=== PATIENT | female | born 1950 | race Caucasian/White ===

== ENCOUNTER 2025-03-14 12:24 | Inpatient (IN) | payer MEDICARE, SELFPAY ==
[2025-03-14] VITALS (18 sets, daily range): BP systolic 99–190; BP diastolic 40–79; PULSE 55–81; TEMP 36.6–36.8; O2SAT 93–98; BMI 80.7; BMI 36.8
--- NOTE | 2025-03-14 14:45 | ECG_ITS ---
[facility] Test Date: 2025-03-14 Pat Name: SAVITA VALLE Department: Room: - Gender: Female Labor Delivery Rn: : 1950 Requested By: [id number] Order Number: [id number] Balta MD: ENRIKE PIRES M.D. Measurements Intervals [place] Rate: 66 P: 76 CA: 202 QRS: 66 QRSD: 78 T: 64 QT: 374 QTc: 387 Interpretive Statements 1100 Sinus rhythm 9110 normal ECG No previous ECG available for comparison Electronically Signed On 03-14-2025 18:07:32 EDT by ENRIKE PIRES M.D.
[2025-03-14 15:28] LABS: Hematocrit 35.1 % (36.0-48.0); Hemoglobin 10.9 g/dL (12.0-16.0); Immature Granulocytes Abs Auto 0.07 10^3/uL (0.00-0.03); Immature Granulocytes Pct Auto 0.5 % (0.0-0.5); Lymphocytes Absolute Auto 1.4 10^3/uL (1.2-3.8); Mean Corpuscular HGB Conc 31.1 g/dL (29.9-35.2); Mean Corpuscular Hemoglobin 28.8 pg (26.7-34.0); Mean Corpuscular Volume 92.6 fL (81.0-99.0); Platelet Count 275 10^3/uL (150-450); Red Blood Count 3.79 10^6/uL (4.20-5.40); White Blood Count 13.9 10^3/uL (4.0-11.0)
[2025-03-14 15:48] LABS: Alanine Aminotransferase 19 U/L (14-59); Albumin Globulin Ratio 0.9; Albumin Level 3.8 g/dL (3.4-5.0); Alkaline Phosphatase 105 U/L (46-116); Anion Gap 16.7; Aspartate Amino Transferase 13 U/L (15-37); Blood Urea Nitrogen 44.0 mg/dL (7.0-18.0); Calcium 9.1 mg/dL (8.5-10.1); Carbon Dioxide 17.6 mmol/L (21.0-32.0); Chloride 108 mmol/L (98-107); Estimated GFR (African America 36 (>=60 mL/min/1.73m^2); Estimated GFR (Non-African Ame 30 (>=60 mL/min/1.73m^2); Globulin 4.2 g/dL; Glucose 100 mg/dL (74-106); Sodium 136 mmol/L (136-145); Total Protein 8.0 g/dL (6.4-8.2)
[2025-03-14 15:52] LABS: Potassium 6.3 mmol/L (3.5-5.1)
--- NOTE | 2025-03-14 16:25 | ED_ITS ---
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 She has a history of chronic kidney disease and recently started spironolactone three months ago per her behavior analyst. She reports no symptoms: no chest pain, abdominal pain, nausea, vomiting, diarrhea, weakness, numbness, or tingling. She is making urine normally and denies any recent illness, cough, congestion, or skin changes. She has not taken any supplemental potassium. She has not had labs checked for over three months prior to nephrology visit. Related Data Home Medications ?Medication ?Instructions ?Recorded ?Confirmed albuterol sulfate 2.5 mg/3 mL 2.5 mg inhalation .4x da megan 03/14/25 03/14/25 (0.083 %) solution for nebulization albuterol sulfate 90 mcg/actuation 2 puff inhalation Q 6H PRN 03/14/25 03/14/25 aerosol inhaler shortness of breath or wheez ing allopurinol 300 mg tablet 300 mg PO DAILY 03/14/25 amlodipine 10 mg tablet 10 mg PO DAILY 03/14/2502/21 atenolol 25 mg tablet 25 mg PO ACHS 03/14/2503/14 calcitriol 0.25 mcg capsule 0.25 mcg PO .COMPLEX 03/1403/14/25 ergocalciferol (vitamin D2) 1,250 1,250 mcg PO DAILY 0 03/14/25 03/14/25 mcg (50,000 unit) capsule ferrous sulfate 325 mg (65 mg 325 mg PO .COMPLEX 03/1403/14/25 iron) tablet (FeroSul) fluticasone fur. 200 mcg-umeclid 1 inh inhalation AC 0 03/14/25 03/14/25 62.5 mcg-vilant 25 mcg inhalat.powder (Trelegy Ellipta) fluticasone propionate 50 2 spray intranasal AC 03/14/25 mcg/actuation nasal spray,suspension furosemide 40 mg tablet mg 03/14/25 Held on 03/14/25. Instructions: Order Change hydralazine 25 mg tablet 25 mg PO BID 03/14/25 levothyroxine 75 mcg tablet 75 mcg PO DAILY 03/14/25 0 03/14/25 lisinopril 20 mg tablet 20 mg PO BID 03/14/25 spironolactone 25 mg tablet 25 mg PO DAILY 03/14/25 Allergies Allergy/AdvReac Type Severity Reaction Status Date / Time Penicillins Allergy Severe Swelling Verified 03/14/25 12:58 of Lip/Tongue/Throat nickel Allergy Mild Redness of Verified 03/14/25 12:58 Skin sulfamethoxazole (From Allergy Mild Unknown Verified 03/14/25 12:58 Bactrim) trimethoprim (From Bactrim) Allergy Mild Unknown Verified 03/14/25 12:58 [facility] Medical History (Updated 03/14/25 @ 20:31 by SHEELA BARKSDALE) COPD (chronic obstructive pulmonary disease) ?J44.9 - Chronic obstructive pulmonary disease, unspecified (ICD-10) Hypertension ?I10 - Essential (primary) hypertension (ICD-10) Stage 3 chronic kidney disease ?N18.30 - Chronic kidney disease, stage 3 unspecified (ICD-10) Social History Little interest or pleasure in doing things: not at all Feeling down, depressed, or hopeless: not at all Exam Narrative Exam Narrative: * General: Alert, oriented, resting comfortably in bed, no acute distress. * Cardiac: Regular rate and rhythm, no murmurs. * Respiratory: Lungs clear to auscultation, no distress. * Abdomen: Soft, non-tender, non-distended. * Extremities / Neuro: No focal deficits, no edema, no numbness or tingling. * Skin: No rashes or lesions noted. Constitutional Vital Signs, click to edit/add: Last Vital Signs Temp 98.3 F 03/14/25 13:09 Pulse 59 L 03/14/25 20:30 Resp 21 H 03/14/25 20:30 BP 131/55 03/14/25 20:30 Pulse Ox 97 03/14/25 20:30 O2 Del Method Room Air 03/14/25 17:00 Course Vital Signs Vital signs: Vital Signs Temperature 98.3 F 03/14/25 13:09 Pulse Rate 67 03/14/25 13:09 Respiratory Rate 20 03/14/25 13:09 Blood Pressure 190/75 H 03/14/25 13:09 Pulse Oximetry 95 03/14/25 13:09 Oxygen Delivery Method Room Air 03/14/25 13:09 Temperature 98.3 F 03/14/25 13:09 Pulse Rate 59 L 03/14/25 20:30 Respiratory Rate 21 H 03/14/25 20:30 Blood Pressure 131/55 03/14/25 20:30 Pulse Oximetry 97 03/14/25 20:30 Oxygen Delivery Method Room Air 03/14/25 17:00 MDM - Recheck/Abnormal Lab/Rx MDM Narrative Medical decision making narrative: Diagnostics / Labs: * Initial Labs: K 6.3, Bicarb 17, pH 7.2, BUN 44, Creatinine 1.68, WBC 13. Troponin 6 (likely reference unit, negative). * EKG: Normal sinus rhythm, HR 66, NV 202 ms, QRS 78 ms, QT/QTc 370/[address] changes, T-wave peaking, or inversion. * Repeat Labs after treatment: K? 5.2, Cl? 111, Bicarb 19.2, BUN 43, Creatinine 1.7, Glucose 65 mg/dL. ED Course / Treatment: * Patient remained asymptomatic throughout ED stay. * Treated with: * IV insulin 10 units + D50 * Albuterol nebulizer * 1 L normal saline hydration * Lokal * Blood glucose monitored; second glucose 65 mg/dL ? patient given oral intake. * Potassium improved from 6.3 ? 5.2 after interventions. MDM / Assessment: Patient with chronic kidney disease and recent initiation of spironolactone presented with hyperkalemia (K? 6.3) without symptoms. EKG was reassuring with no acute changes. Labs revealed mild metabolic acidosis (bicarb 17, pH 7.2) and slight leukocytosis (WBC 13). Hyperkalemia was managed with standard temporizing measures (IV insulin, D50, albuterol, hydration), resulting in potassium improvement to 5.2. Differential includes: * Medication-induced hyperkalemia (likely due to spironolactone) * CKD-related impaired potassium excretion * Less likely: acute hemolysis or tissue breakdown (no clinical evidence) Given need for ongoing monitoring of potassium and blood glucose after insulin therapy, patient is appropriate for inpatient admission. Disposition: * Plan: Admit to inpatient unit for continued monitoring of electrolytes, renal function, and glucose. Adjust medications as needed in consultation with nephrology. Patient remained asymptomatic and is hemodynamically stable for admission. * * * She sees Dr. Hernández, nephrology in [place] Medical Records Attestation: I reviewed the patient's medical records. Lab Data Attestation: I reviewed the patient's lab results. Labs: Lab Results 03/14/25 03/14/25 03/14/25 Range/Units 15:13 16:26 18:49 WBC 13.9 H (4.0-11.0) 10^3/uL RBC 3.79 L (4.20-5.40) 10^6/uL Hgb 10.9 L (12.0-16.0) g/dL Hct 35.1 L (36.0-48.0) % MCV 92.6 (81.0-99.0) fL MCH 28.8 (26.7-34.0) pg MCHC 31.1 (29.9-35.2) g/dL RDW 16.7 H (11.0-15.0) % Plt Count 275 (150-450) 10^3/uL MPV 11.6 (9.5-13.5) fL Neut % (Auto) 82.7 H (43.0-75.0) % Lymph % (Auto) 10.2 L (20.5-60.0) % [place] % (Auto) 4.9 (1.7-12.0) % Eos % (Auto) 1.6 (0.9-7.0) % Baso % (Auto) 0.1 L (0.2-2.0) % Neut # (Auto) 11.5 H (1.4-6.5) 10^3/uL Lymph # (Auto) 1.4 (1.2-3.8) 10^3/uL [place] # (Auto) 0.7 (0.3-0.8) 10^3/uL Eos # (Auto) 0.2 (0.0-0.7) 10^3/uL Baso # (Auto) 0.0 (0.0-0.1) 10^3/uL Abs Immat Gran (auto) 0.07 H (0.00-0.03) 10^3/uL Imm/Tot Granulo (auto) 0.5 (0.0-0.5) % VBG pH 7.293 L (7.330-7.430) VBG pCO2 32.9 L (40.0-52.0) mmHg Sodium 136 140 (136-145) mmol/L Potassium 6.3 H* 5.2 H (3.5-5.1) mmol/L Chloride 108 H 111 H (98-107) mmol/L Carbon Dioxide 17.6 L 19.2 L (21.0-32.0) mmol/L Anion Gap 16.7 15.0 BUN 44.0 H 43.0 H (7.0-18.0) mg/dL Creatinine 1.68 H 1.70 H (0.55-1.02) mg/dL Est GFR ( Amer) 36 L 35 L (>=60 mL/min/1.73m^2) Est GFR (Non-Af Amer) 30 L 29 L (>=60 mL/min/1.73m^2) BUN/Creatinine Ratio 26.2 25.3 Glucose 100 65 L (74-106) mg/dL Calcium 9.1 8.5 (8.5-10.1) mg/dL Magnesium 2.0 (1.8-2.4) mg/dL Total Bilirubin 0.3 (0.2-1.0) mg/dL AST 13 L (15-37) U/L ALT 19 (14-59) U/L Alkaline Phosphatase 105 (46-116) U/L Troponin I High Sens 6.0 (4.0-51.3) pg/mL Total Protein 8.0 (6.4-8.2) g/dL Albumin 3.8 (3.4-5.0) g/dL Globulin 4.2 g/dL Albumin/Globulin Ratio 0.9 ECG Data Attestation: ?I have reviewed the pertinent ECG results. Discharge Plan Discharge Chief Complaint: Recheck/Abnormal Lab/Rx Clinical Impression: Acute hyperkalemia, Chronic renal failure Patient Disposition: Admitted as Observation Time of Disposition Decision: 20:34 Condition: Good
[2025-03-14 16:39] LABS: PCO2 VBG 32.9 mmHg (40.0-52.0); pH VBG 7.293 (7.330-7.430)
[2025-03-14] MEDS: 0.9 % SODIUM CHLORIDE 1,000 ML 1000 ML IV (16:46)
[2025-03-14] MEDS: INSULIN REGULAR, HUMAN (100 UNIT/ML) 10 ML MDV 10 UNIT IV (16:47)
[2025-03-14] MEDS: DEXTROSE 50 %-WATER 25 GM/50 ML SYRINGE IV (16:47)
[2025-03-14] MEDS: SODIUM ZIRCONIUM CYCLOSILICATE 10 GM POWD.PACK PO (16:48)
[2025-03-14] MEDS: ALBUTEROL SULFATE 2.5 MG/3 ML VIAL NEB IH (16:58)
[2025-03-14 17:15] LABS: Magnesium 2.0 mg/dL (1.8-2.4)
[2025-03-14 19:09] LABS: Anion Gap 15.0; Blood Urea Nitrogen 43.0 mg/dL (7.0-18.0); Calcium 8.5 mg/dL (8.5-10.1); Carbon Dioxide 19.2 mmol/L (21.0-32.0); Chloride 111 mmol/L (98-107); Estimated GFR (African America 35 (>=60 mL/min/1.73m^2); Estimated GFR (Non-African Ame 29 (>=60 mL/min/1.73m^2); Glucose 65 mg/dL (74-106); Potassium 5.2 mmol/L (3.5-5.1); Sodium 140 mmol/L (136-145)
[2025-03-14] MEDS: SODIUM CHLORIDE 0.45 % 1,000 ML 80 ML IV (22:45)
[2025-03-14] MEDS: ENOXAPARIN SODIUM 30 MG/0.3 ML SYRINGE SUBQ (22:45)
[2025-03-15] VITALS (19 sets, daily range): BP systolic 132–153; BP diastolic 67–81; PULSE 61–80; TEMP 36.5–36.7; O2SAT 93–98
[2025-03-15 05:12] LABS: Hematocrit 28.9 % (36.0-48.0); Hemoglobin 9.1 g/dL (12.0-16.0); Immature Granulocytes Abs Auto 0.04 10^3/uL (0.00-0.03); Immature Granulocytes Pct Auto 0.3 % (0.0-0.5); Lymphocytes Absolute Auto 1.8 10^3/uL (1.2-3.8); Mean Corpuscular HGB Conc 31.5 g/dL (29.9-35.2); Mean Corpuscular Hemoglobin 29.4 pg (26.7-34.0); Mean Corpuscular Volume 93.2 fL (81.0-99.0); Platelet Count 237 10^3/uL (150-450); Red Blood Count 3.10 10^6/uL (4.20-5.40); White Blood Count 12.2 10^3/uL (4.0-11.0)
[2025-03-15 05:32] LABS: Alanine Aminotransferase 15 U/L (14-59); Albumin Globulin Ratio 0.9; Albumin Level 3.1 g/dL (3.4-5.0); Alkaline Phosphatase 85 U/L (46-116); Anion Gap 17.1; Aspartate Amino Transferase 10 U/L (15-37); Blood Urea Nitrogen 42.0 mg/dL (7.0-18.0); Calcium 8.1 mg/dL (8.5-10.1); Carbon Dioxide 17.2 mmol/L (21.0-32.0); Chloride 111 mmol/L (98-107); Estimated GFR (African America 41 (>=60 mL/min/1.73m^2); Estimated GFR (Non-African Ame 34 (>=60 mL/min/1.73m^2); Globulin 3.3 g/dL; Glucose 71 mg/dL (74-106); Potassium 5.3 mmol/L (3.5-5.1); Sodium 140 mmol/L (136-145); Total Protein 6.4 g/dL (6.4-8.2)
[2025-03-15] MEDS: LEVOTHYROXINE SODIUM 75 MCG TABLET PO (05:48)
[2025-03-15] MEDS: HYDRALAZINE HCL 25 MG TABLET PO ×2 (09:26→21:23)
[2025-03-15] MEDS: SODIUM BICARBONATE 325 MG TABLET 1300 MG PO ×3 (09:27→21:23)
[2025-03-15] MEDS: ATENOLOL 25 MG TABLET PO ×2 (09:27→21:23)
--- NOTE | 2025-03-15 09:41 | CM.NOTE ---
Dr. Woodard in for daily rounds. Dr. Woodard to review records from sales account specialist. Potential DC tomorrow.
[2025-03-15] MEDS: BUDESONIDE 0.5 MG/2 ML AMPULE NEB IH ×2 (10:04→20:38)
[2025-03-15] MEDS: ALBUTEROL SULFATE 2.5 MG/3 ML VIAL NEB IH ×3 (10:05→20:38)
--- NOTE | 2025-03-15 11:00 | CM.NOTE ---
Discussed with Dr. Woodard regarding pt status, pt will change to inpatient status.
--- NOTE | 2025-03-15 11:10 | CM.NOTE ---
Called [facility] office for previous labs, labs received and given to Dr. Woodard.
--- NOTE | 2025-03-15 12:14 | PM.HP ---
HPI H&P: HPI History of Present Illness Chief complaint: Acute hyperkalemia chronic renal failure Narrative: Mrs. May is a 75-year-old female with a history of CKD stage III, hypertension. According to the patient she had been on lisinopril 20 mg twice a day. Her gui developer in the [place] added the spironolactone. She had an outpatient blood test which showed potassium above 6.5 and she was instructed to come to the emergency room. Potassium here is 6.3. Patient was given hyperkalemia cocktail and admitted for observation. No chest pain or palpitation. No abdominal pain, nausea or vomiting. No fever or chills Opioid HPI Opioid Management Most Recent Pain and Opioid Data: Last Pain Assessment 03/14/25, 22:00 Last ORT Total Score 0 03/14/25, 21:21 Last ORT Risk Category Low Risk 03/14/25, 21:21 Review of Systems ROS Status of ROS 10 or more systems reviewed and unremarkable except as noted in history and below PFSH PFS Medical History (Updated 03/15/25 @ 12:15 by Yisel Woodard MD) COPD (chronic obstructive pulmonary disease) ?J44.9 - Chronic obstructive pulmonary disease, unspecified (ICD-10) Stage 3 chronic kidney disease ?N18.30 - Chronic kidney disease, stage 3 unspecified (ICD-10) Surgical History (Updated 03/15/25 @ 00:02 by Radha Elizondo RN) History of phacoemulsification of cataract of both eyes with intraocular lens implantation ?Z98.41 - Cataract extraction status, right eye (ICD-10) ?Z98.42 - Cataract extraction status, left eye (ICD-10) ?Z96.1 - Presence of intraocular lens (ICD-10) H/O partial thyroidectomy ?E89.0 - Postprocedural hypothyroidism (ICD-10) Family History (Updated 03/14/25 @ 21:27 by Radha Elizondo, GALLO) Father Family history of CHF (congestive heart failure) Family history of COPD (chronic obstructive pulmonary disease) Family history of hypertension Family history of myocardial infarction Grandfather Family history of cancer Mother Family history of diabetes mellitus Family history of hypertension Family history of stroke Brother Family history of diabetes mellitus Social History (Updated 03/14/25 @ 21:28 by Radha Elizondo, GALLO) Within the past year, how often did you have a drink containing alcohol: never Score interpretation: A score less than 3 is consistent with normal alcohol consumption. Smoking status: Former smoker Non-prescribed substance use: denies use Highest level of school completed/degree received: high school graduate Are you now , , , , never or living with a partner: living with partner Little interest or pleasure in doing things: not at all Feeling down, depressed, or hopeless: not at all Do you think of yourself as: straight/heterosexual Gender Identity: female Meds Home Medications and Allergies Home Medications ?Medication ?Instructions ?Recorded ?Confirmed ?Type albuterol sulfate 2.5 mg/3 mL 2.5 mg inhalation .4x daily 03/14/25 03/14/25 History (0.083 %) solution for nebulization albuterol sulfate 90 mcg/actuation 2 puff inhalation Q6H PRN 03/14/25 03/14/25 History aerosol inhaler shortness of breath or wheezing allopurinol 300 mg tablet 300 mg PO DAILY 03/14/25 03/14/25 History amlodipine 10 mg tablet 10 mg PO DAILY 03/14/25 History atenolol 25 mg tablet 25 mg PO BID 03/14/25 03/15/25 History calcitriol 0.25 mcg capsule 0.25 mcg PO .COMPLEX 03/14/25 03/14/25 History ergocalciferol (vitamin D2) 1,250 1,250 mcg PO QWEEK 03/14/25 03/15/25 History mcg (50,000 unit) capsule ferrous sulfate 325 mg (65 mg 325 mg PO .COMPLEX 03/14/25 03/14/25 History iron) tablet (FeroSul) fluticasone fur. 200 mcg-umeclid 1 inh inhalation .AM 03/14/25 03/15/25 History 62.5 mcg-vilant 25 mcg inhalat.powder (Trelegy Ellipta) fluticasone propionate 50 2 spray intranasal AC 03/14/25 03/14/25 History mcg/actuation nasal spray,suspension hydralazine 25 mg tablet 25 mg PO BID 03/14/25 03/14/25 History levothyroxine 75 mcg tablet 75 mcg PO DAILY 03/14/25 03/14/25 History lisinopril 20 mg tablet 20 mg PO BID 03/14/25 03/14/25 History spironolactone 25 mg tablet 25 mg PO DAILY 03/14/25 03/14/25 History Allergies Allergy/AdvReac Type Severity Reaction Status Date / Time Penicillins Allergy Severe Swelling Verified 03/14/25 12:58 of Lip/Tongue/Throat nickel Allergy Mild Redness of Verified 03/14/25 12:58 Skin sulfamethoxazole (From Allergy Mild Unknown Verified 03/14/25 12:58 Bactrim) trimethoprim (From Bactrim) Allergy Mild Unknown Verified 03/14/25 12:58 Exam Narrative Exam Narrative: [pt is awake and alert. oriented to place, time and person HEENT: [place] conjunctiva and NL buccal mucosa Neck: Supple, no tenderness Endocrine: No Thyromegaly. Vascular: No JVD or carotid bruit. Lymphatic: No cervical lymphadenopathy. Chest: CTA no DTP. Heart RRR, no extra sound or murmur. Abd: Soft, no tenderness, no rebound and no rigidity. Increase abd girth therefore clinically I could not exclude the possibility of intra abd mass or organomegaly. LE: No cyanosis or clubbing, no varices or edema. Neuro: A A O. Nl speech, comprehension and attention. Nl and symetrical motor and tone examination through out. []] Constitutional Vital Signs, click to edit/add: Last Vital Signs Temp 97.9 F 03/15/25 08:00 Pulse 67 03/15/25 11:59 Resp 18 03/15/25 08:00 BP 153/81 H 03/15/25 09:26 Pulse Ox 96 03/15/25 10:05 O2 Del Method Room Air, Nasal Cannula 03/15/25 10:05 Results Labs Labs: Short CBC 03/14/25 03/15/25 Range/Units 15:13 04:55 WBC 13.9 H 12.2 H (4.0-11.0) 10^3/uL Hgb 10.9 L 9.1 L (12.0-16.0) g/dL Hct 35.1 L 28.9 L (36.0-48.0) % Plt Count 275 237 (150-450) 10^3/uL BMP 03/14/25 03/14/25 03/15/25 15:13 18:49 04:55 Sodium 136 140 140 Potassium 6.3 H* 5.2 H 5.3 H Chloride 108 H 111 H 111 H Carbon Dioxide 17.6 L 19.2 L 17.2 L BUN 44.0 H 43.0 H 42.0 H Creatinine 1.68 H 1.70 H 1.49 H Glucose 100 65 L 71 L Calcium 9.1 8.5 8.1 L Liver Function 03/14/25 03/15/25 Range/Units 15:13 04:55 Total Bilirubin 0.3 0.3 (0.2-1.0) mg/dL AST 13 L 10 L (15-37) U/L ALT 19 15 (14-59) U/L Alkaline Phosphatase 105 85 (46-116) U/L Albumin 3.8 3.1 L (3.4-5.0) g/dL ABG ABG results: 03/14/25 16:26 VBG pH 7.293 L VBG pCO2 32.9 L Assessment and Plan Assessment and Plan (1) Chronic renal failure: (2) Acute hyperkalemia: (3) Anemia: Plan Hyperkalemia which is likely caused by the use of the lisinopril 20 mg twice a day in the addition of her spironolactone by her gui developer in the setting of CKD stage III Hold lisinopril and spironolactone Patient had received hyperkalemia protocol already. Potassium is down to 5.3. Continue to monitor potassium and blood pressure off BP meds Hypertension Patient was taken off lisinopril and spironolactone due to hyperkalemia Patient otherwise already on amlodipine, atenolol and hydralazine. Consideration to resume lisinopril at a lower dose CKD stage III. Near baseline. Consideration to resume lisinopril at a lower dose. Patient is to follow-up with her information security officer Dr. Zelaya. Anemia, no evidence of acute blood loss. This could be related to her CKD. I would recommend to start erythropoietin if hemoglobin drops below 8.5. To be followed up by nephrology team. Patient will likely require to have anemia workup to be done in the outpatient setting to be handled by PCP in collaboration with other needed outpatient providers. This may include but not limited to EGD, colonoscopy, referral to see hematology and other needed age-appropriate cancer screening. Metabolic acidosis which could be related to CKD. Bicarbonate is 17. Start patient on sodium bicarb with a goal to keep bicarbonate above 22. Check phosphorus level as well. Chronic medical conditions not listed above. These would need to be addressed. Could be addressed in the outpatient setting by PCP collaboration with other needed outpatient providers., Abnormal labs and imaging
--- NOTE | 2025-03-15 12:17 | PC.NURSE ---
removed telemetry so patient can take a shower at this time.
--- NOTE | 2025-03-15 14:44 | SWNOTE1 ---
Important Message from [employer] reviewed and discussed with patient. Pt. verbalized understanding and signed the form. Original given to patient and copy placed in patient?s chart.
--- NOTE | 2025-03-15 14:44 | SWNOTE1 ---
SW met with pt to discuss dc needs. Pt was ambulating independently in room when SW arrived. Pt lives at home with . Pt is independent and has no services coming in. Pt has no anticipated discharge needs at this time. SW to follow as needed.
[2025-03-15] MEDS: FUROSEMIDE 40 MG TABLET PO (18:00)
[2025-03-15] MEDS: AMLODIPINE BESYLATE 5 MG TABLET 10 MG PO (21:23)
[2025-03-15] MEDS: ENOXAPARIN SODIUM 30 MG/0.3 ML SYRINGE SUBQ (21:23)
[2025-03-15] MEDS: ALLOPURINOL 300 MG TABLET PO (21:23)
[2025-03-16] VITALS (14 sets, daily range): BP systolic 124–145; BP diastolic 65–75; PULSE 60–72; TEMP 36.6–36.8; O2SAT 92–95
[2025-03-16] MEDS: ALBUTEROL SULFATE 2.5 MG/3 ML VIAL NEB IH ×2 (05:16→10:20)
[2025-03-16] MEDS: LEVOTHYROXINE SODIUM 75 MCG TABLET PO (05:32)
[2025-03-16] MEDS: SODIUM BICARBONATE 325 MG TABLET 1300 MG PO (05:32)
[2025-03-16 06:01] LABS: Anion Gap 16.6; Blood Urea Nitrogen 41.0 mg/dL (7.0-18.0); Calcium 8.3 mg/dL (8.5-10.1); Carbon Dioxide 20.0 mmol/L (21.0-32.0); Chloride 110 mmol/L (98-107); Estimated GFR (African America 43 (>=60 mL/min/1.73m^2); Estimated GFR (Non-African Ame 35 (>=60 mL/min/1.73m^2); Glucose 98 mg/dL (74-106); Potassium 5.6 mmol/L (3.5-5.1); Sodium 141 mmol/L (136-145)
--- NOTE | 2025-03-16 08:35 | CM.NOTE ---
Pt will discharge to home , no discharge needs identified. Pt given lab requisition to have BMP completed on Thursday prior to seeing Dr. Zelaya. Pt verbalizes understanding.
[2025-03-16] MEDS: HYDRALAZINE HCL 25 MG TABLET PO (09:14)
[2025-03-16] MEDS: ATENOLOL 25 MG TABLET PO (09:14)
[2025-03-16] MEDS: TORSEMIDE 20 MG TABLET PO (09:14)
[2025-03-16] MEDS: SODIUM ZIRCONIUM CYCLOSILICATE 10 GM POWD.PACK PO (09:14)
[2025-03-16] MEDS: BUDESONIDE 0.5 MG/2 ML AMPULE NEB IH (10:20)
--- NOTE | 2025-03-16 12:05 | P.DS_ITS ---
DS: Providers Provider Date of admission: 03/15/25 11:30 Primary care physician: Non-Staff Physician, DS: Diagnosis Discharge Diagnosis (1) Chronic renal failure: (2) Acute hyperkalemia: (3) Anemia: Plan As listed above, below and others that are not listed DS: Summary Hospital Course Hospital Course: Mrs. May is a 75-year-old female with a known diagnosis of hypertension and CKD. She was started on spironolactone recently in addition to lisinopril. Outpatient blood work showed potassium of 6.5 therefore the patient was sent to the emergency room. Hyperkalemia which is likely caused by the use of the lisinopril 20 mg twice a day in the addition of her spironolactone by her surveyor instrument assistant in the setting of CKD stage III Hold lisinopril and spironolactone Patient had received hyperkalemia protocol already. Potassium is down to 5.3. Then up to 5.6. Repeat potassium at 2 PM. Continue to monitor potassium and blood pressure off BP meds If repeat potassium is less than 5.5, the patient will be discharged home Demadex 20 mg daily that will help keep potassium under control and without lisinopril and spironolactone. Patient has follow-up appointment with her air launch weapons technician Dr. Zelaya on Thursday. Patient will get the BMP on Thursday prior to his visit. Hypertension Patient was taken off lisinopril and spironolactone due to hyperkalemia Patient otherwise already on amlodipine, atenolol and hydralazine. I increased hydralazine dose from 25 twice daily up to 3 times daily. Additional titration of BP meds may be needed. CKD stage III. Near baseline. Consideration to resume lisinopril at a lower dose. Patient is to follow-up with her air launch weapons technician Dr. Zelaya. Patient has an appointment with him on Thursday. Anemia, no evidence of acute blood loss. This could be related to her CKD. I would recommend to start erythropoietin if hemoglobin drops below 8.5. To be followed up by nephrology team. Patient will likely require to have anemia workup to be done in the outpatient setting to be handled by PCP in collaboration with other needed outpatient providers. This may include but not limited to EGD, colonoscopy, referral to see hematology and other needed age-appropriate cancer screening. Metabolic acidosis which could be related to CKD. Bicarbonate is 17. Start patient on sodium bicarb with a goal to keep bicarbonate above 22. Check phosphorus level as well in the outpatient setting. Her acidosis had improved. Bicarbonate is up to 20. Patient will be discharged home on sodium bicarb 650 twice daily. Additional titration could be done in the outpatient setting. Chronic medical conditions not listed above. These would need to be addressed. Could be addressed in the outpatient setting by PCP collaboration with other needed outpatient providers., Abnormal labs and imaging I had discussed her case with her at the bedside. Patient has multiple complex medical issues as listed above and others that are not listed. All appear to be stable. I do not have any clear or strong clinical justification to extend inpatient hospitalization. Patient however will require close and frequent monitoring as well as additional work-up, investigation and therapeutic intervention that could take place from this point on post discharge. That is to prevent relapse, decompensation, rehospital ization and other medical implications.. I instructed patient to ask her primary care doctor to obtain [facility] record entirely to address abnormalities seen on labs and imaging that I have and have not addressed during this hospitalization, follow-up on pending blood work, imaging and pathology is if available and to follow-up on needed medical care in the outpatient setting. Time Spent with Patient Time attestation: Total time spent providing and/or coordinating discharge services: Exam Narrative Exam Narrative: [pt is awake and alert. oriented to place, time and person HEENT: [place] conjunctiva and NL buccal mucosa Neck: Supple, no tenderness Endocrine: No Thyromegaly. Vascular: No JVD or carotid bruit. Lymphatic: No cervical lymphadenopathy. Chest: CTA no DTP. Heart RRR, no extra sound or murmur. Abd: Soft, no tenderness, no rebound and no rigidity. Increase abd girth therefore clinically I could not exclude the possibility of intra abd mass or organomegaly. LE: No cyanosis or clubbing, no varices or edema. Neuro: A A O. Nl speech, comprehension and attention. Nl and symetrical motor and tone examination through out. []] Constitutional Vital Signs, click to edit/add: Last Vital Signs Temp 98.2 F 03/16/25 08:16 Pulse 72 03/16/25 10:22 Resp 14 03/16/25 08:16 BP 145/75 H 03/16/25 08:16 Pulse Ox 95 03/16/25 10:22 O2 Del Method Room Air 03/16/25 10:22 DS: Data Data Completed and Pending Labs on day of discharge: Labs from last 24 hours 03/16/25 05:03 Sodium 141 Potassium 5.6 H Chloride 110 H Carbon Dioxide 20.0 L Anion Gap 16.6 BUN 41.0 H Creatinine 1.44 H Est GFR ( Amer) 43 L Est GFR (Non-Af Amer) 35 L BUN/Creatinine Ratio 28.5 Glucose 98 Calcium 8.3 L Discharge Plan Discharge Disposition: Home, Self-Care Condition: Good Discharge Medications: New torsemide 20 mg Tablet 20 mg PO QD Qty: 30 1RF sodium bicarbonate 650 mg tablet 650 mg PO BID Qty: 60 1RF Continued albuterol sulfate 2.5 mg /3 mL (0.083 %) solution for nebulization 2.5 mg inhalation .4x daily atenolol 25 mg tablet 25 mg PO BID amlodipine 10 mg tablet 10 mg PO DAILY ferrous sulfate [FeroSul] 325 mg (65 mg iron) tablet 325 mg PO .COMPLEX Rx Instructions: 325 mg orally Q48hr; allopurinol 300 mg tablet 300 mg PO DAILY ergocalciferol (vitamin D2) 1,250 mcg (50,000 unit) capsule 1,250 mcg PO QWEEK albuterol sulfate 90 mcg/actuation HFA aerosol inhaler 2 puff INHALATION Q6H PRN (Reason: shortness of breath or wheezing) fluticasone propionate 50 mcg/actuation spray,suspension 2 spray INTRANASAL AC calcitriol 0.25 mcg capsule 0.25 mcg PO .COMPLEX Rx Instructions: 0.25 mcg orally 3x weekly; Trelegy Ellipta 200-62.5-25 mcg blister with device 1 inh INHALATION .AM levothyroxine 75 mcg tablet 75 mcg PO DAILY Changed hydralazine 25 mg tablet 25 mg PO TID Qty: 0 0RF Discontinued lisinopril 20 mg tablet 20 mg PO BID spironolactone 25 mg tablet 25 mg PO DAILY Print Language: Persian Activity Restrictions/Additional Instructions: I may not have addressed or treated all of your medical illnesses or the abnormal blood work or imaging studies during this hospitalization. Please ask your primary care provider to obtain [facility] records entirely to follow up on all of the abnormal physical, laboratory, and imaging findings that I have not addressed. Please return back to the emergency room or seek medical attention if your symptoms worsen or return. Please follow-up with Dr. Zelaya on Thursday Blood test BMP on Thursday Please avoid eating potassium rich food such as banana, nuts, kiwi, raisin, spinach, tomato and beans and others. Discharging you from [facility] does not mean that your medical care ends here and now. You may still need additional monitoring, work up, investigation, and treatment plan to be handled from this point on by out patient providers including your primary care provider and specialists. For any medication question, please contact your retail pharmacist or your primary care provider. Thank you. Forms: Portal Instructions Follow Up Appointments: Thu. 03/22 @ 9:40am with Dr. Zelaya (nephrology) [address] [place] [address] . 03/23 @ 8:40am with Alexandro Bradley NP [facility] [phone]
[2025-03-16] MEDS: SODIUM BICARBONATE 325 MG TABLET 650 MG PO (13:53)
[2025-03-16 14:18] LABS: Potassium 4.9 mmol/L (3.5-5.1)
--- NOTE | 2025-03-17 10:34 | CM.DCFOLLOWU ---
Person spoke with: Gabriela How are you feeling? I'm feeling ok How is your pain? No pain Did you understand your discharge instructions? Yes Do you have any questions about your discharge instructions? No Were you given any prescriptions at discharge? Yes Were you able to get your prescriptions filled? Yes Do you understand how to take your medications as ordered? Yes Do you have any questions about your follow up appointment and do you plan to keep your follow up appointment? No questions and yes I plan on following up with my appts Is there anything else that you would like to discuss? No Questions/Comments/Concerns/Other:Not at this time
== END 2025-03-16 15:10 | disposition home or self-care (01) | DRG 641 ==
LOC: ER 20:36 → MS 21:10
PROVIDERS: Physician Assistant; Admitting Provider Internal Medicine; Emergency Provider Emergency Medicine; Visit Provider Internal Medicine
DX: E87.5 Hyperkalemia (principal); I12.9 Hypertensive chronic kidney disease with stage 1 through stage 4 chronic kidney disease, or unspecified chronic kidney disease; J44.9 Chronic obstructive pulmonary disease, unspecified; Z96.1 Presence of intraocular lens; E89.0 Postprocedural hypothyroidism; Z87.891 Personal history of nicotine dependence; Z79.899 Other long term (current) drug therapy; N18.30 Chronic kidney disease, stage 3 unspecified; D64.9 Anemia, unspecified; T46.4X5A Adverse effect of angiotensin-converting-enzyme inhibitors, initial encounter; T50.0X5A Adverse effect of mineralocorticoids and their antagonists, initial encounter; E87.20 Acidosis, unspecified
CPT/HCPCS: 36415; 80048; 80053; 82800; 83735; 84132; 84484; 85025; 93005; 94640; 96372; 96374; 99285; G0378; J1650; J1817